=== PATIENT | male | born 1980 | race Caucasian/White ===

== ENCOUNTER 2022-04-05 13:47 | Emergency (ER) | payer SELFPAY ==
[2022-04-05 14:02] VITALS: BP 130/100; PULSE 69; RESP 18; TEMP 35.8; O2SAT 97; BMI 26.8
--- NOTE | 2022-04-05 14:13 | ED_ITS ---
HPI - General Adult General Chief complaint: Back Injury/Pain Stated complaint: Lower back pain Time Seen by Provider: 04/05/22 13:59 Source: patient Mode of arrival: ambulatory Limitations: no limitations History of Present Illness HPI narrative: 42-year-old male coming in today complaining of back pain going on day 3. He denies fevers or chills. No nausea or vomiting. States that he was playing golf on Tuesday and the pain started on Tuesday evening. Pain is located in the right lower back and upper buttocks area. Does not radiate down the leg or up the back. Does not cross the midline. He denies any loss of bowel or bladder function. He states that he has had herniated disc that required surgery in the past but he has been doing okay since. He denies any neurologic deficits, no weakness of the lower extremities. Lying down makes the pain better movement makes it worse. Related Data Home Medications Medication Instructions Recorded Confirmed No Known Home Medications 04/05/22 04/05/22 Previous Rx's Medication Instructions Recorded methylprednisolone 4 mg tablets in See Rx Instructions PO .COMPLEX 04/05/22 a dose pack (Medrol (Levar)) #21 ea Allergies Allergy/AdvReac Type Severity Reaction Status Date / Time No Known Drug Allergies Allergy Verified 04/05/22 14:06 Review of Systems Status of ROS: Reports: 6 or more systems reviewed and unremarkable except as noted in History and below Exam Narrative: Exam Narrative: Well-nourished well-developed patient in no acute distress but is uncomfortable. Alert and oriented. Answers questions appropriately. Mood and affect are appropriate. Thoughts are goal oriented and rational. No tangential or magical thinking noted. Patient speaks in full sentences without needing to catch their breath. Speech is not slurred or pressured. HEENT: Normocephalic atraumatic. Pupils are equally round reactive to light. Extraocular muscles are intact. Conjunctivae are moist without any icterus noted. Extremities: Bilateral lower extremities are without edema. Normal DP and PT pulses. Skin: Well perfused without any obvious rashes. Back: Patient has no tenderness to palpation over the thoracic or lumbar spine. Straight leg test is positive. Strength is 5 5 of the bilateral lower extremities. Reflexes are 2+ symmetric at the knees. Const: Vital Signs, click to edit/add: Vital Signs - 24 hr 04/05/22 14:02 Temperature 96.5 F L Pulse Rate [Pulse Oximeter] 69 Respiratory Rate 18 Blood Pressure [Ri ght Upper Arm] 130/100 H Pulse Oximetry 97 Oxygen Delivery Me thod Room Air Course Course Hospital Course: Patient given IM Toradol while in the ER which did take the edge off of his discomfort. Vital Signs Vital signs: Initial Vital Signs Temperature 96.5 F L 04/05/22 14:02 Temperature Source Temporal Artery Scan 04/05/22 14:02 Pulse Rate 69 04/05/22 14:02 Respiratory Rate 18 04/05/22 14:02 Blood Pressure 130/100 H 04/05/22 14:02 Blood Pressure Mean 110 04/05/22 14:02 Blood Pressure Position Supine 04/05/22 14:02 Pulse Oximetry 97 04/05/22 14:02 Oxygen Delivery Method 04/05/22 14:02 Vital Signs Temperature 96.5 F L 04/05/22 14:02 Pulse Rate 69 04/05/22 14:02 Respiratory Rate 18 04/05/22 14:02 Blood Pressure 130/100 H 04/05/22 14:02 Pulse Oximetry 97 04/05/22 14:02 Oxygen Delivery Method 04/05/22 14:02 Temperature 96.5 F L 04/05/22 14:02 Pulse Rate 69 04/05/22 14:02 Respiratory Rate 18 04/05/22 14:02 Blood Pressure 130/100 H 04/05/22 14:02 Pulse Oximetry 97 04/05/22 14:02 Oxygen Delivery Method 04/05/22 14:02 Medical Decision Making MDM Narrative Medical decision making narrative: Low back pain with some mild radiculopathy into the buttocks region. At this time will treat with a Medrol Dosepak. We discussed NSAID use and rest. We discussed gentle stretching. We discussed reasons for follow-up. Patient was agreeable had no other questions. Discharge Plan Discharge Clinical Impression: Lumbar radiculopathy, Strain of lumbar region Patient Disposition: Home, Self-Care Condition: Stable Additional Instructions: Take all steroid as prescribed. Okay to use ibuprofen up to 800 mg 3 times per day with food as needed for discomfort. Okay to use a heating pad to the lower back, do not apply heat directly to skin. Recommend gentle stretching on a daily basis. Follow-up with your primary care provider if you are not improving over the next week. Prescriptions: New methylprednisolone [Medrol (Levar)] 4 mg tablets,dose pack See Rx Instructions .ROUTE .COMPLEX Qty: 21 0RF Rx Instructions: orally per package directions No Action No Known Home Medications Stand Alone Forms: [facility] Info Instructions
[2022-04-05] MEDS: KETOROLAC 30 MG/ML inj 60 MG IM (14:31)
== END 2022-04-05 14:59 | disposition home or self-care (01) ==
LOC: ED 14:24
PROVIDERS: Emergency Provider Family Medicine
DX: M54.16 Radiculopathy, lumbar region (principal)
CPT/HCPCS: 96372; 99283; 99284; J1885